=== PATIENT | male | born 2005 | race Caucasian/White ===

== ENCOUNTER 2025-05-04 12:54 | Emergency (ER) | payer OTHER ==
[2025-05-04] MEDS ORDERED: CEFAZOLIN 1 GM VIAL ONE (13:02)
[2025-05-04] MEDS ORDERED: Ketorolac Tromethamine 30 MG (1 mL) VIAL ONE (13:40)
[2025-05-04] MEDS ORDERED: Ondansetron PF 4 MG/2 ML Vial ONE (13:40)
[2025-05-04] MEDS ORDERED: Lidocaine 1% w/Epinephrine 1:100K 20 ML VIAL ONE (13:53)
[2025-05-04] MEDS ORDERED: Bacitracin 1 PK ONE (15:04)
== END 2025-05-04 15:56 | disposition home or self-care (01) ==
LOC: ERS 12:54
DX: S56.522A Laceration of other extensor muscle, fascia and tendon at forearm level, left arm, initial encounter (principal); F17.290 Nicotine dependence, other tobacco product, uncomplicated; Z55.6 Problems related to health literacy; W27.0XXA Contact with workbench tool, initial encounter; Y93.89 Activity, other specified
CPT/HCPCS: 12002; 96365; 96375; G0390; J0690; J1885